=== PATIENT | male | born 1990 | race Caucasian/White ===

== ENCOUNTER 2017-11-18 13:30 | Emergency (ER) | payer OTHER ==
--- NOTE | 2017-11-18 15:03 | RAD REPORT ---
EXAM DESCRIPTION: RAD - Chest Pa And Lat (2 Views) - 11/18/2017 2:57 pm CLINICAL HISTORY: COUGH Chest pain. COMPARISON: No comparisons FINDINGS: The lungs are clear. The heart is normal in size. No displaced fractures. IMPRESSION: No acute or concerning finding suspected.
--- NOTE | 2017-11-18 15:30 | ER ---
Nurse's Notes [facility] Name: Erica Pickett Age: 26 yrs Sex: Male : 1990 Arrival Date: 11/18/2017 Time: 13:35 Bed 17 Private MD: Diagnosis: Acute upper respiratory infection, unspecified Presentation: 11/18 13:37 Presenting complaint: Patient states: I had a sinus infection 2-3 weeks ago and then I la1 got a persistent cough with clear mucus and now I am having some soreness in my abdomen and groin. Transition of care: patient was not received from another setting of care. Onset of symptoms was November 18, 2017. Risk Assessment: Do you want to hurt yourself or someone else? Patient reports no desire to harm self or others. Initial Sepsis Screen: Does the patient meet any 2 criteria? No. Patient's initial sepsis screen is negative. Does the patient have a suspected source of infection? No. Patient's initial sepsis screen is negative. Care prior to arrival: None. 13:37 Method Of Arrival: Ambulatory la1 13:37 Acuity: CHIN 3 la1 Historical: - Allergies: 13:37 No Known Allergies; la1 - PMHx: 13:37 None; la1 - Immunization history:: Adult Immunizations up to date. - Social history:: Smoking status: Patient/guardian denies using tobacco. - Ebola Screening: : No symptoms or risks identified at this time. Screenin:52 Abuse screen: Denies threats or abuse. Nutritional screening: No deficits noted. em Tuberculosis screening: No symptoms or risk factors identified. Fall Risk None identified. Assessment: 14:11 General: Appears in no apparent distress. Behavior is calm, cooperative. Pain: Denies la1 pain. Neuro: Level of Consciousness is awake, alert, obeys commands, Oriented to person, place, time, situation. Cardiovascular: Capillary refill < 3 seconds Patient's skin is warm and dry. Respiratory: Airway is patent Respiratory effort is even, unlabored, Respiratory pattern is regular, symmetrical, Breath sounds are clear bilaterally. GI: No signs and/or symptoms were reported involving the gastrointestinal system. : No signs and/or symptoms were reported regarding the genitourinary system. 15:00 Reassessment: Patient appears in no apparent distress at this time. Patient and/or em family updated on plan of care and expected duration. Pain level reassessed. Patient is alert, oriented x 3, equal unlabored respirations, skin warm/dry/pink. Vital Signs: 13:38 BP 137 / 77; Pulse 88; Resp 16; Temp 98.4(O); Pulse Ox 100% on R/A; Weight 106.59 kg; la1 Height 6 ft. 3 in. (190.50 cm); 15:30 BP 128 / 68; Pulse 78; Resp 18; Pulse Ox 99% on R/A; Pain 4/10; em 13:38 Body Mass Index 29.37 (106.59 kg, 190.50 cm) la1 ED Course: 13:35 Patient arrived in ED. as 13:38 Triage completed. la1 13:38 Arm band placed on right wrist. la1 13:50 Chencho Jiménez NP is PHCP. pm1 13:50 Rafi Casiano MD is Attending Physician. pm1 13:52 Saroj Friend LVN is Primary Nurse. em 13:52 Patient has correct armband on for positive identification. Bed in low position. Call em light in reach. 14:12 No provider procedures requiring assistance completed. Flu and/or RSV swab sent to lab. la1 Patient did not have IV access during this emergency room visit. 14:57 Chest Pa And Lat (2 Views) XRAY In Process Unspecified. EDMS Administered Medications: No medications were administered Outcome: 15:30 Discharge ordered by MD. pm1 16:00 Discharged to home ambulatory. em 16:00 Condition: good 16:00 Discharge instructions given to patient, Instructed on discharge instructions, follow up and referral plans. medication usage, Demonstrated understanding of instructions, follow-up care, medications, Prescriptions given X 1. 16:01 Patient left the ED. em Signatures: Dispatcher [employer] EDMS Saroj Friend LVN LVN em Suyapa Moe Lee, RN RN la1 Chencho Jiménez NP DEHYDROGENATION OPERATOR pm1
--- NOTE | 2017-11-18 15:31 | EDPHYS ---
Physician Documentation [facility] Name: Erica Pickett Age: 26 yrs Sex: Male : 1990 Arrival Date: 11/18/2017 Time: 13:35 Bed 17 Private MD: ED Physician Rafi Casiano HPI: 11/18 15:00 This 26 yrs old Male presents to ER via Ambulatory with complaints of Cough, pm1 Pain All Over. 15:00 The patient or guardian reports cough, with productive sputum, that is white. Onset: pm1 The symptoms/episode began/occurred 3 day(s) ago. Severity of symptoms: in the emergency department the symptoms are unchanged. Modifying factors: The symptoms are alleviated by nothing, the symptoms are aggravated by nothing. Associated signs and symptoms: Pertinent negatives: chest pain, diarrhea, fever, nausea, sore throat, vomiting. The patient has been recently seen by a physician: Patient diagnosed with sinusitis 2 weeks ago and given antibiotics that improved his symptoms. 3 days after completing abx he started having a cough. Occasionally he coughs so hard that he has left lower quadrant muscle spasming. Patient does not currently have any abdominal pain. Historical: - Allergies: 13:37 No Known Allergies; la1 - PMHx: 13:37 None; la1 - Immunization history:: Adult Immunizations up to date. - Social history:: Smoking status: Patient/guardian denies using tobacco. - Ebola Screening: : No symptoms or risks identified at this time. ROS: 15:00 Constitutional: Negative for fever, chills, and weight loss, Eyes: Negative for injury, pm1 pain, redness, and discharge, ENT: Negative for injury, pain, and discharge, Neck: Negative for injury, pain, and swelling, Cardiovascular: Negative for chest pain, palpitations, and edema. 15:00 Abdomen/GI: Negative for abdominal pain, nausea, vomiting, diarrhea, and constipation, Back: Negative for injury and pain, : Negative for injury, bleeding, discharge, and swelling, MS/Extremity: Negative for injury and deformity, Skin: Negative for injury, rash, and discoloration, Neuro: Negative for headache, weakness, numbness, tingling, and seizure. 15:00 Respiratory: Positive for cough, Negative for shortness of breath, wheezing. Exam: 15:00 Constitutional: This is a well developed, well nourished patient who is awake, alert, pm1 and in no acute distress. Head/Face: Normocephalic, atraumatic. Eyes: Pupils equal round and reactive to light, extra-ocular motions intact. Lids and lashes normal. Conjunctiva and sclera are non-icteric and not injected. Cornea within normal limits. Periorbital areas with no swelling, redness, or edema. ENT: Nares patent. No nasal discharge, no septal abnormalities noted. Tympanic membranes are normal and external auditory canals are clear. Oropharynx with no redness, swelling, or masses, exudates, or evidence of obstruction, uvula midline. Mucous membranes moist. Neck: Trachea midline, no thyromegaly or masses palpated, and no cervical lymphadenopathy. Supple, full range of motion without nuchal rigidity, or vertebral point tenderness. No Meningismus. Chest/axilla: Normal chest wall appearance and motion. Nontender with no deformity. No lesions are appreciated. Cardiovascular: Regular rate and rhythm with a normal S1 and S2. No gallops, murmurs, or rubs. Normal PMI, no JVD. No pulse deficits. Respiratory: Lungs have equal breath sounds bilaterally, clear to auscultation and percussion. No rales, rhonchi or wheezes noted. No increased work of breathing, no retractions or nasal flaring. Abdomen/GI: Soft, non-tender, with normal bowel sounds. No distension or tympany. No guarding or rebound. No evidence of tenderness throughout. Back: No spinal tenderness. No costovertebral tenderness. Full range of motion. Skin: Warm, dry with normal turgor. Normal color with no rashes, no lesions, and no evidence of cellulitis. MS/ Extremity: Pulses equal, no cyanosis. Neurovascular intact. Full, normal range of motion. 15:00 Neuro: Orientation: is normal, Motor: is normal, moves all fours. Vital Signs: 13:38 BP 137 / 77; Pulse 88; Resp 16; Temp 98.4(O); Pulse Ox 100% on R/A; Weight 106.59 kg; la1 Height 6 ft. 3 in. (190.50 cm); 15:30 BP 128 / 68; Pulse 78; Resp 18; Pulse Ox 99% on R/A; Pain 4/10; em 13:38 Body Mass Index 29.37 (106.59 kg, 190.50 cm) la1 MDM: 13:56 Patient medically screened. pm1 15:29 Data reviewed: vital signs. Data interpreted: Pulse oximetry: on room air is 100 %. pm1 Interpretation: normal. Counseling: I had a detailed discussion with the patient and/or guardian regarding: the historical points, exam findings, and any diagnostic results supporting the discharge/admit diagnosis, lab results, radiology results, the need for outpatient follow up, to return to the emergency department if symptoms worsen or persist or if there are any questions or concerns that arise at home. 11/18 14:11 Order name: Flu; Complete Time: 15:16 la1 11/18 14:21 Order name: Chest Pa And Lat (2 Views) XRAY; Complete Time: 15:16 pm1 Administered Medications: No medications were administered Disposition: 18:40 Co-signature as Attending Physician, Rafi Casiano MD Available for consultation at ps1 all times. . Disposition: 11/18/17 15:30 Discharged to Home. Impression: Acute upper respiratory infection, unspecified. - Condition is Stable. - Discharge Instructions: Upper Respiratory Infection, Adult, Viral Respiratory Infection. - Prescriptions for Tessalon Perles 100 mg Oral Capsule - take 1 capsule by ORAL route every 8 hours As needed; 15 capsule. - Work release form, Medication Reconciliation Form, Thank You Letter, Antibiotic Education, Prescription Opioid Use form. - Follow up: Emergency Department; When: As needed; Reason: Worsening of condition. Follow up: Private Physician; When: 2 - 3 days; Reason: Recheck today's complaints, Continuance of care, Re-evaluation by your physician. - Problem is new. - Symptoms have improved. Signatures: Dispatcher [employer] EDVT Saroj Friend, [employer] MANAGER [employer]ARM MANAGER em Joe Godinez RN RN la1 Chencho Jiménez, [employer]OR pm1 Rafi Casiano MD MD ps1 Corrections: (The following items were deleted from the chart) 16:01 15:30 11/18/2017 15:30 Discharged to Home. Impression: Acute upper respiratory em infection, unspecified. Condition is Stable. Forms are Medication Reconciliation Form, Thank You Letter, Antibiotic Education, Prescription Opioid Use. Follow up: Emergency Department; When: As needed; Reason: Worsening of condition. Follow up: Private Physician; When: 2 - 3 days; Reason: Recheck today's complaints, Continuance of care, Re-evaluation by your physician. Problem is new. Symptoms have improved. pm1
== END 2017-11-18 16:01 | disposition home or self-care (01) ==
LOC: ER 13:30
DX: J06.9 Acute upper respiratory infection, unspecified (principal)
CPT/HCPCS: 71046; 87804; 99283